=== PATIENT | female | born 1985 | race American Indian/Alaskan Native ===

== ENCOUNTER 2016-06-14 06:41 | Day surgery (SDC) | payer MEDICAID ==
[~2016-06-14 06:41] MED LIST: ANCEF/STERILE WATER 2 GM/20 ML IV NR
[2016-06-14] MEDS ORDERED: ZOFRAN IV PRN (07:42)
--- NOTE | 2016-06-14 07:58 | Anesthesia Consultation ---
Anesthesia Consult and Med Hx Date of service: 06/14/16 - Airway Anesthetic Teeth Evaluation: Good ROM Head & Neck: Adequate Mental/Hyoid Distance: Adequate Mallampati Class: Class II Intubation Access Assessment: Probably Good - Pulmonary Exam CTA: Yes - Cardiac Exam Cardiac Exam: RRR - Pre-Operative Health Status ASA Pre-Surgery Classification: ASA3 Proposed Anesthetic Plan: General - Pulmonary Hx Smoking: No Hx Asthma: No Hx Sleep Apnea: No (TIMOTHY PRE SCREEN LOW RISK) - Cardiovascular System Hx Hypertension: No - Central Nervous System Hx Seizures: No CVA: No - Gastrointestinal Hx Gastroesophageal Reflux Disease: No - Endocrine Hx Renal Disease: No Hx Cirrhosis: No Hx Insulin Dependent Diabetes: No Hx Thyroid Disease: No - Other Systems Hx Substance Use: Yes (MARIJUANA 3-4X PER WEEK) Hx Cancer: No Hx Obesity: Yes (morbid obesity, bmi 42.1) - Additional Comments Anesthesia Medical History Comments: PONV
--- NOTE | 2016-06-14 07:58 | Anesthesia Day of Surgery ---
Anesthesia Day of Surgery - Day of Surgery Patient Examined: Yes Patient H&P Reviewed: Yes Patient is NPO: Yes
[2016-06-14] MEDS ORDERED: REGLAN PO NR (08:00)
[2016-06-14] MEDS ORDERED: VERSED IV NR (08:00)
[2016-06-14] MEDS ORDERED: TRANSDERM-SCOP TD NR (08:00)
[2016-06-14] MEDS ORDERED: LACTATED RINGERS 1,000 ML IV SCH (08:00)
[2016-06-14] MEDS ORDERED: PEPCID PO NR (08:00)
[2016-06-14] MEDS ORDERED: DIPRIVAN 10 MG/ML IV ONE (08:19)
[2016-06-14] MEDS ORDERED: DILAUDID ONE (08:20)
[2016-06-14 08:43] LABS: Hematocrit 31.9 % (30.3-42.9); Hemoglobin 10.1 gm/dl (10.1-14.3)
[2016-06-14] MEDS ORDERED: XYLOCAINE MPF 2% ONE (09:47)
[2016-06-14] MEDS ORDERED: DECADRON ONE ×2 (09:48)
[2016-06-14] MEDS ORDERED: XYLOCAINE 1%/ EPI 1:100,000 INFILTRATI ONE (10:40)
[2016-06-14] MEDS ORDERED: MARCAINE 0.25% INFILTRATI ONE (10:41)
[2016-06-14] MEDS: DILAUDID IV PRN ×2 (11:14→11:30)
--- NOTE | 2016-06-14 11:15 | Operative Report ---
SERVICE: Plastic surgery. PREOPERATIVE DIAGNOSES: 1. Cicatrix. 2. Dog ear deformity. 3. Status post bilateral breast reduction. PROCEDURE: Complex scar revision of bilateral breasts, 22 cm. SURGEON: Renny Berkowitz MD [employer] COMMISSIONER: Piter Cardenas CSA DESCRIPTION OF PROCEDURE: An elliptical excision was made around dog ear deformity of bilateral chest stratton with excision of skin and adipose tissue followed by closure in layers using interrupted and running subcuticular 2-0 Monocryl sutures. Mastisol, Steri-Strips, and sterile dressings applied. The patient tolerated the procedure well and returned to recovery room in stable condition. JOB# [id number] FTW/NTS
--- NOTE | 2016-06-14 11:47 | Post Anesthesia Evaluation ---
- Post Anesthesia Evaluation Patient Participated: Yes Airway Patent: Yes Stable Respiratory Function: Yes Temp > 96.8F: Yes Pain Manageable: Yes Adequeate Hydration: Yes Anesthesia Complications: No Block Receding Appropriately: Not Applicable
[2016-06-14 12:26] VITALS: BP 130/83
== END 2016-06-14 12:45 | disposition home or self-care (01) ==
LOC: OR 06:41
PROVIDERS: ATTEND Plastic Surgery
DX: L91.0 Hypertrophic scar (principal); F12.90 Cannabis use, unspecified, uncomplicated; E66.01 Morbid (severe) obesity due to excess calories; Z68.41 Body mass index [BMI] 40.0-44.9, adult
CPT/HCPCS: 13101; 13102; 36415; 81025; 85014; 85018; 88307; J0690; J1100; J1170; J2250; J2704; J7120